=== PATIENT | male | born 1965 | race Caucasian/White ===

== ENCOUNTER 2017-01-11 23:57 | Emergency (ER) | payer BC, OTHER ==
--- NOTE | 2017-01-11 23:59 | PDOC ---
History of Present Illness - General Chief Complaint: Pain, Acute Stated Complaint: PAIN AND SWELLING TO RIGHT FOOT AND ANKLE Time Seen by Provider: 01/11/17 23:59 - History of Present Illness Initial Comments: 01/12/17 00:13 This 51-year-old man with no significant past medical history except lower back pain presents with 1 day history of the right ankle pain. Patient first noted pain as he was traveling home by train (patient works as a y[employer]z). No history of trauma or overuse. Although patient is not using new footwear, he has recently (2 days ago) started using new insoles in his work boots. Patient denies pain or swelling in any other joint and denies fever/chills. No history of gout or other inflammatory arthritis.no family history of gout. Patient has taken 2 [id number] Aleve tablets and used topical analgesic patch without significant relief this evening Past History - Past Medical History Allergies/Adverse Reactions: Allergies Allergy/AdvReac Type Severity Reaction Status Date / Time No Known Allergies Allergy Verified 01/11/17 23:58 Home Medications: Ambulatory Orders Indomethacin [Indocin -] 50 mg PO TID #15 capsule 01/12/17 Review of Systems - Review of Systems Able to Perform ROS?: Yes Comments:: 12 point review of systems is negative except for what is noted in the history of present illness *Physical Exam - Physical Exam Comments: GENERAL: The patient is awake, alert, and fully oriented, in mild distress secondary to right ankle pain Vital signs as noted. HEAD: Normal with no signs of trauma. EYES: Pupils equal, round and reactive to light, extraocular movements intact, sclera anicteric, conjunctiva clear with no pallor. ENT: moist mucous membranes. Ears normal, nares patent, oropharynx clear without exudates. NECK: Normal range of motion, supple without lymphadenopathy, JVD, or masses. LUNGS: Breath sounds equal, clear to auscultation bilaterally. No wheeze/ crackles. HEART: Regular rate and rhythm, normal S1 and S2 without murmur or rub. ABDOMEN: Soft/nontender/nondistended. BS wnl. No guarding or rebound. No palpable masses. No hepatosplenomegaly. EXTREMITIES:right anklemild edema, moderate tenderness of medial and lateral malleolus;no erythema/deformity no ligamentous instability;strongly palpable dorsalis pedis pulse at mid foot distal extremity warm and dry with excellent caplillary refill NEUROLOGICAL: Cranial nerves II through XII grossly intact. Normal speech, normal gait. PSYCH: Normal mood, normal affect. SKIN: Warm, Dry, normal turgor, no rashes or lesions noted. Medical Decision Making - Medical Decision Making 01/12/17 01:23 Ankle xray negative for fracture/dislocation clinical presentation most consistent with gouty arthritis. Toradol 60mg IM given and prescription for Indomethacin 50mg TID (#15) sent to pharmacy Patient will followup with his PMD, Dr Julian for uric acid levels,etc within the next 2 days *DC/Admit/Observation/Transfer Diagnosis at time of Disposition: Ankle pain, right Qualifiers: Chronicity: acute Qualified Code(s): M25.571 - Pain in right ankle and joints of right foot - Discharge Dispostion Disposition: HOME Condition at time of disposition: Stable - Prescriptions Prescriptions: Indomethacin [Indocin -] 50 mg PO TID #15 capsule - Referrals Referrals: Myron Julian MD [Staff Physician] - Call tomorrow - Patient Instructions Printed Discharge Instructions: Gout Additional Instructions: elevate foot as much as possible Indocin 50mg three times a day (take with food) followup with Dr Julian within 2 days
[2017-01-12 00:07] VITALS: BP 148/96; PULSE 93; TEMP 98.2; BMI 30.5
[2017-01-12] MEDS ORDERED: KETOROLAC TROMETHAMINE 60 MG/2 ML VIAL IM ONE (00:48)
[2017-01-12] MEDS ORDERED: KETOROLAC TROMETHAMINE 60 MG/2 ML VIAL ONE (00:48)
== END 2017-01-12 00:56 | disposition home or self-care (01) ==
LOC: FER 23:57
PROC: 3E0233Z Introduction of Anti-inflammatory into Muscle, Percutaneous Approach (ICD-10-PCS; principal; 2017-01-11)
DX: M25.571 Pain in right ankle and joints of right foot (principal)
CPT/HCPCS: 73610-TC-RT; 99281-25

== ENCOUNTER 2020-06-18 16:01 | Emergency (ER) | payer BC, OTHER ==
--- NOTE | 2020-06-18 16:08 | PDOC ---
History of Present Illness - General Chief Complaint: Bite Stated Complaint: INSECT BITE RIGHT UPPER LEG Time Seen by Provider: 06/18/20 16:08 Past History - Medical History Allergies/Adverse Reactions: Allergies Allergy/AdvReac Type Severity Reaction Status Date / Time No Known Allergies Allergy Verified 01/11/17 23:58 Home Medications: Ambulatory Orders Indomethacin [Indocin -] 50 mg PO TID #15 capsule 01/12/17 - Psycho-Social/Smoking History Smoking History: Current every day smoker Have you smoked in the past 12 months: Yes Number of Cigarettes Smoked Daily: 10 'Breaking Loose' booklet given: 01/12/17 Discharge - Discharge Information Condition: Stable - Follow up/Referral - Patient Discharge Instructions - Post Discharge Activity
[2020-06-18 16:24] VITALS: BP 122/82; PULSE 83; TEMP 98.9; BMI 31.1
--- NOTE | 2020-06-18 16:45 | PDOC ---
Documentation entered by Brianna Chung SCRIBE, acting as scribe for Johnathon Champagne MD. Johnathon Champagne MD: This documentation has been prepared by the tusharibeSheldon Lincy, SCRIBE, under my direction and personally reviewed by me in its entirety. I confirm that the documentation accurately reflects all work, treatment, procedures, and medical decision making performed by me. History of Present Illness - General Chief Complaint: Bite Stated Complaint: INSECT BITE RIGHT UPPER LEG Time Seen by Provider: 06/18/20 16:08 History Source: Patient Exam Limitations: No Limitations - History of Present Illness Initial Comments: 06/18/20 16:28 The patient is a 55-year-old male with no significant past medical history who presents to the emergency department with a rash. The patient reports he noticed a bullseye pattern rash on the back of the right thigh today. The patient reports he was out fishing Tuesday and Tuesday, and reports he did a self-check when he got home. The patient reports a prior history of tick bites, however, denies seeing a similar rash or prior history of Lyme disease. Denies fever, chills, or joint pain. Denies cardiac or pulmonary illness/disease. Allergies: NKA Social history: +tobacco use. PCP: Dr. Floyd. Past History - Medical History Allergies/Adverse Reactions: Allergies Allergy/AdvReac Type Severity Reaction Status Date / Time No Known Allergies Allergy Verified 06/18/20 16:19 Home Medications: Ambulatory Orders Doxycycline Hyclate [Vibratab -] 100 mg PO BID #28 tablet 06/18/20 - Psycho-Social/Smoking History Smoking History: Current every day smoker Have you smoked in the past 12 months: Yes Number of Cigarettes Smoked Daily: 10 'Breaking Loose' booklet given: 01/12/17 Review of Systems - Review of Systems Able to Perform ROS?: Yes Comments:: 06/18/20 16:28 CONSTITUTIONAL: Absent: fever, no chills, no fatigue EYES: Absent: visual changes ENT: Absent: ear pain, no sore throat CARDIOVASCULAR: Absent: chest pain, no palpitations RESPIRATORY: Absent: cough, no SOB GI: Absent: abdominal pain, no nausea, no vomiting, no constipation, no diarrhea GENITOURINARY: Absent: dysuria, no frequency, no hematuria MUSKULOSKELETAL: Absent: back pain, no arthralgia, no myalgia SKIN: +right thigh rash. Absent: No other rash NEURO: Absent: headache *Physical Exam - Physical Exam 06/18/20 16:29 GENERAL: Afebrile and normal vital signs. Well-appearing, well-nourished. No apparent distress. HEENT: Normocephalic, atraumatic. PERRL, EOM intact. CARDIOVASCULAR: Normal S1, S2. Regular rate and rhythm. PULMONARY: Clear to auscultation bilaterally. ABDOMEN: Soft, non-distended, non-tender. EXTREMITIES: Normal ROM in all four extremities. No gross deformities. SKIN: +There is a erythematous, indurated, circular bulls eye lesion on the posterior right thigh, with suggestion of insect bite centrally but no tick or other insect present. The lesion is 15cm in diameter, nontender, and there is no drainage. No adenopathy. Distal pulses intact. No distal motor or sensory deficit. Warm and dry. NEUROLOGICAL: No focal neurological deficits. Medical Decision Making - Medical Decision Making 06/18/20 16:44 Patient with typical ECM rash right posterior thigh. No history of Lyme disease. No other medical problems and no medications. Prescribed doxycycline, baseline Lyme titer drawn. Instructions and follow-up primary physician. Discharge - Discharge Information Problems reviewed: Yes Clinical Impression/Diagnosis: Erythema chronicum migrans Condition: Stable Disposition: HOME - Admission No - Additional Discharge Information Prescriptions: Doxycycline Hyclate [Vibratab -] 100 mg PO BID #28 tablet - Follow up/Referral Referrals: Wayne Floyd MD [Primary Care Provider] - - Patient Discharge Instructions Patient Printed Discharge Instructions: How to Care for an Insect Bite or Sting Additional Instructions: Your rash is suspicious for tick bite, and you are at risk for subsequent Lyme disease Take antibiotic as directed. Avoid sun exposure, wearing protective hat and clothing and using sunscreen while taking the medication, otherwise severe rash can develop. If you develop flulike symptoms despite taking the antibiotics, which may include fever, body aches, muscle aches, joint aches, joint swelling, fatigue, see your family physician immediately. Otherwise return to your family physician for repeat blood test in 3 to 4 weeks. - Post Discharge Activity
== END 2020-06-18 16:44 | disposition home or self-care (01) ==
LOC: FER 16:01 → SUPCPDRO 16:01 → FER 16:44
DX: A69.20 Lyme disease, unspecified (principal)
CPT/HCPCS: 36415; 86618; 99283-25

== ENCOUNTER 2021-06-06 12:43 | Emergency (ER) | payer BC, OTHER ==
[2021-06-06 12:52] VITALS: BP 143/93; PULSE 72; TEMP 98.3; BMI 30.5
[2021-06-06] MEDS ORDERED: DIPHTH,PERTUSS(ACELL),TET 0.5 ML DISP.SYRIN IM ONE ×2 (12:59→13:01)
== END 2021-06-06 13:07 | disposition home or self-care (01) ==
LOC: FER 12:43
PROC: 3E0234Z Introduction of Serum, Toxoid and Vaccine into Muscle, Percutaneous Approach (ICD-10-PCS; principal; 2021-06-06)
DX: Z48.02 Encounter for removal of sutures (principal)
CPT/HCPCS: 90715; 99283-25

== ENCOUNTER 2022-11-30 16:35 | Emergency (ER) | payer BC, OTHER ==
[2022-11-30 16:43] VITALS: BP 144/98; PULSE 88; RESP 18; TEMP 97.9; BMI 30.9
[2022-11-30 17:24] LABS: HEMATOCRIT 43.3 % (35.4-49); HEMOGLOBIN 15.2 G/dL (11.7-16.9); MCH 33.8 pg (25.7-33.7); MCHC 35.2 g/dl (32.0-35.9); MEAN CELL VOLUME 96.3 fl (80-96); MEAN PLT VOLUME 7.5 fl (7.5-11.1); PLATELET COUNT 236.3 10^3/uL (134-434); RDW 14.4 % (11.9-15.9); WHITE BLOOD COUNT 9.5 10^3/uL (4.0-10.8)
[2022-11-30 17:38] LABS: PLATELET ESTIMATE ADEQUATE
== END 2022-11-30 17:50 | disposition home or self-care (01) ==
LOC: FER 16:35
DX: K62.5 Hemorrhage of anus and rectum (principal)
CPT/HCPCS: 36415; 82272; 85027; 99283-25

== ENCOUNTER 2023-05-21 15:16 | Emergency (ER) | payer BC, OTHER ==
[2023-05-21 15:31] VITALS: BP 137/98; PULSE 76; RESP 18; TEMP 98.6; BMI 30.5
[2023-05-21] MEDS ORDERED: METHOCARBAMOL 500 MG TABLET PO ONE (15:38)
[2023-05-21] MEDS ORDERED: LIDOCAINE 5% TOPICAL PATCH TP ONE (15:38)
[2023-05-21] MEDS ORDERED: KETOROLAC TROMETHAMINE 30 MG/1 ML VIAL IM ONE (15:38)
[2023-05-21] MEDS ORDERED: LIDOCAINE 5% TOPICAL PATCH ONE (15:41)
[2023-05-21] MEDS ORDERED: METHOCARBAMOL 500 MG TABLET ONE (15:41)
[2023-05-21] MEDS ORDERED: KETOROLAC TROMETHAMINE 30 MG/1 ML VIAL ONE (15:41)
[2023-05-21] MEDS ORDERED: LIDOCAINE PATCH REMOVAL MC SCH (22:00)
== END 2023-05-21 16:20 | disposition home or self-care (01) ==
LOC: FER 15:16
PROC: 3E0233Z Introduction of Anti-inflammatory into Muscle, Percutaneous Approach (ICD-10-PCS; principal; 2023-05-21)
DX: S39.012A Strain of muscle, fascia and tendon of lower back, initial encounter (principal); M54.50 Low back pain, unspecified; X50.0XXA Overexertion from strenuous movement or load, initial encounter; Y93.89 Activity, other specified; Y92.9 Unspecified place or not applicable
CPT/HCPCS: 81003; 99284-25